=== PATIENT | male | born 1990 | race Caucasian/White ===

== ENCOUNTER 2017-06-01 20:21 | Emergency (ER) | payer OTHER | END 2017-06-01 23:27 | disposition home or self-care (01) | LOC: FTE 20:21 | DX: S29.9XXA Unspecified injury of thorax, initial encounter (principal); X58.XXXA Exposure to other specified factors, initial encounter; Y92.9 Unspecified place or not applicable | CPT/HCPCS: 71045; 71100; 99283-25 ==